=== PATIENT | male | born 1955 | race Caucasian/White ===

== ENCOUNTER → 2021-01-20 | Outpatient (CLI) | payer MEDICARE ==
[~2021-01-20] MED LIST: ASPIRIN EC325 MG PO; EPIPEN 2-P0.3 MG/0.3 INJ; LIPITOR TAB 2020 MG PO; LOTENSIN40 MG PO; NORVASC 5 MG TAB5 MG PO
== END ==
LOC: HEART CORB 10:53
DX: I48.91 Unspecified atrial fibrillation (principal); I34.0 Nonrheumatic mitral (valve) insufficiency; I37.1 Nonrheumatic pulmonary valve insufficiency
CPT/HCPCS: 93306

== ENCOUNTER → 2021-10-27 | Outpatient (CLI) | payer MEDICARE | LOC: HEART 5 08:52 | DX: J60 Coalworker's pneumoconiosis (principal) | CPT/HCPCS: 94060; 94729 ==